=== PATIENT | male | born 1955 | race Caucasian/White ===

== ENCOUNTER 2016-06-15 08:08 | Observation (INO) | payer BC ==
[~2016-06-15 08:08] MED LIST: ASAB PO; GLUCOPHAGE1000 MG PO; GLUCOTRO10 PO; INVOKANA100 MG PO; LOP25 PO; NITROSTAT0.4 MG SL; ZOCOR10 PO
[2016-06-15 09:10] LABS: BASOPHILS 0.4 %; BASOPHILS ABSOLUTE 0.03 10/3/uL (0.0-0.16); EOSINOPHILS 3.6 %; EOSINOPHILS ABSOLUTE 0.26 10/3/uL (0.0-0.53); HEMOGLOBIN 14.7 g/dL (13.6-17.8); IMMATURE GRANULOCYTES 0.3 %; IMMATURE GRANULOCYTES ABSOLUTE 0.02 10/3/uL (0.0-0.11); LYMPHOCYTES 22.7 %; LYMPHOCYTES ABSOLUTE 1.62 10/3/uL (0.67-4.30); MEAN CORPUSCULAR HEMOGLOB 31.5 pg (26.0-34.0); MEAN PLATELET VOLUME 9.9 fL (9.2-13.0); MONOCYTES 11.6 %; MONOCYTES ABSOLUTE 0.83 10/3/uL (0.21-1.20); NEUTROPHILS 61.4 %; NEUTROPHILS ABSOLUTE 4.37 10/3/uL (2.02-8.40); PLATELET COUNT 226 10/3/uL (150-400); RBC DISTRIBUTION WIDTH 12.5 % (12.0-16.0); RED CELL COUNT 4.66 10/6/uL (4.7-6.1); WHITE BLOOD CELLS 7.1 10/3/uL (4.5-10.5)
[2016-06-15 09:11] LABS: HEMATOCRIT 39.5 % (40.0-51.0); MANUAL DIFF NO %; MEAN CORPUS HGB CONC 37.2 g/dL (32.0-36.0); MEAN CORPUSCULAR VOLUME 84.8 fL (80-100)
[2016-06-15 09:26] LABS: BUN (BLOOD UREA NITROGEN) 16 MG/DL (6-23); CALCIUM, SERUM 8.3 MG/DL (8.5-10.4); CHLORIDE, SERUM 107 MMOL/L (96-112); CO2 (CARBON DIOXIDE) 27 MMOL/L (24-34); CREATININE 0.81 MG/DL (0.70-1.30); GFR AFRICAN AMERICAN 110 ML/MIN (>=60); GFR NON AFRICAN AMERICAN 95 ML/MIN (>=60); HDL CHOLESTEROL 48 MG/DL (> 39); POTASSIUM, SERUM 3.9 MMOL/L (3.5-5.3); SODIUM, SERUM 141 MMOL/L (135-148)
[2016-06-15 09:27] LABS: CHOL/HDL RATIO(NOT ORDER) 3.8 (0-5); CHOLESTEROL 182 MG/DL (< 200); GLUCOSE, SERUM 182 MG/DL (60-99); LDL CHOLESTEROL 113 MG/DL (< 130); NON-HDL CHOLESTEROL 134 MG/DL (< 160); TRIGLYCERIDE 106 MG/DL (< 150)
[2016-06-15 09:28] LABS: PLATELET ESTIMATE ADQ (ADEQUATE); RBC MORPHOLOGY NORM (NORMAL)
[2016-06-16] MEDS ORDERED: EFFIENT10 PO (08:58)
[2016-06-16] MEDS ORDERED: LIPITOR40 PO (08:58)
== END 2016-06-16 09:25 | disposition home or self-care (01) ==
LOC: CORLMH 08:08 → SSU1 08:17
PROVIDERS: Internal Medicine Cardiovascular Disease
PROC: 4A023N7 Measurement of Cardiac Sampling and Pressure, Left Heart, Percutaneous Approach (ICD-10-PCS; principal; 2016-06-15)
PROC: B2111ZZ Fluoroscopy of Multiple Coronary Arteries using Low Osmolar Contrast (ICD-10-PCS; 2016-06-15)
PROC: 027034Z Dilation of Coronary Artery, One Artery with Drug-eluting Intraluminal Device, Percutaneous Approach (ICD-10-PCS; 2016-06-15)
DX: I25.10 Atherosclerotic heart disease of native coronary artery without angina pectoris (principal); I21.4 Non-ST elevation (NSTEMI) myocardial infarction; E11.9 Type 2 diabetes mellitus without complications; E78.5 Hyperlipidemia, unspecified; Z83.49 Family history of other endocrine, nutritional and metabolic diseases; Z83.3 Family history of diabetes mellitus; Z87.81 Personal history of (healed) traumatic fracture; Z79.82 Long term (current) use of aspirin; Z79.84 Long term (current) use of oral hypoglycemic drugs; Z79.899 Other long term (current) drug therapy
CPT/HCPCS: 80048; 80061; 82962; 85025; 85347; 93005; 93458; 93571; 99152; 99153; A9270-GY; C1725; C1769; C1874; C1887; C1894; C9600; G0378; J0153; J2250; J3010; Q9967

== ENCOUNTER 2016-08-16 23:02 | Emergency (ER) | payer BC ==
[~2016-08-16 23:02] MED LIST changes: +EFFIENT10 PO; +LIPITOR40 PO
[2016-08-17 00:03] LABS: BASOPHILS 0.1 %; BASOPHILS ABSOLUTE 0.01 10/3/uL (0.0-0.16); EOSINOPHILS 1.5 %; EOSINOPHILS ABSOLUTE 0.13 10/3/uL (0.0-0.53); HEMATOCRIT 40.3 % (40.0-51.0); HEMOGLOBIN 14.4 g/dL (13.6-17.8); IMMATURE GRANULOCYTES 0.1 %; IMMATURE GRANULOCYTES ABSOLUTE 0.01 10/3/uL (0.0-0.11); LYMPHOCYTES 17.4 %; LYMPHOCYTES ABSOLUTE 1.52 10/3/uL (0.67-4.30); MANUAL DIFF NO %; MEAN CORPUS HGB CONC 35.7 g/dL (32.0-36.0); MEAN CORPUSCULAR HEMOGLOB 31.5 pg (26.0-34.0); MEAN CORPUSCULAR VOLUME 88.2 fL (80-100); MEAN PLATELET VOLUME 10.3 fL (9.2-13.0); MONOCYTES 7.1 %; MONOCYTES ABSOLUTE 0.62 10/3/uL (0.21-1.20); NEUTROPHILS 73.8 %; NEUTROPHILS ABSOLUTE 6.46 10/3/uL (2.02-8.40); PLATELET COUNT 233 10/3/uL (150-400); RBC DISTRIBUTION WIDTH 12.6 % (12.0-16.0); RED CELL COUNT 4.57 10/6/uL (4.7-6.1); WHITE BLOOD CELLS 8.8 10/3/uL (4.5-10.5)
[2016-08-17 00:10] LABS: INTERNATIONAL NORMAL RATI 1.1 UNITS (-); PARTIAL THROMBO TIME 29.8 SEC (22.5-37.2); PROTIME (NOT ORD) 14.1 SEC (12.0-14.5)
[2016-08-17 00:19] LABS: CALCIUM, SERUM 8.9 MG/DL (8.5-10.4); CHEST PAIN PROFILE TAT 0 Hrs 20 Mins; CHLORIDE, SERUM 110 MMOL/L (96-112); CO2 (CARBON DIOXIDE) 25 MMOL/L (24-34); CREATININE 0.96 MG/DL (0.70-1.30); GFR AFRICAN AMERICAN 97 ML/MIN (>=60); GFR NON AFRICAN AMERICAN 84 ML/MIN (>=60); GLUCOSE, SERUM 200 MG/DL (60-99); POTASSIUM, SERUM 3.7 MMOL/L (3.5-5.3); SODIUM, SERUM 144 MMOL/L (135-148); TROPONIN I <0.02 NG/ML (<0.05)
[2016-08-17 00:20] LABS: BUN (BLOOD UREA NITROGEN) 24 MG/DL (6-23)
== END 2016-08-17 01:24 | disposition home or self-care (01) ==
LOC: ER 23:02
PROVIDERS: Nurse Practitioner
DX: S08.0XXA Avulsion of scalp, initial encounter (principal); S00.81XA Abrasion of other part of head, initial encounter; M54.2 Cervicalgia; R07.9 Chest pain, unspecified; Z95.5 Presence of coronary angioplasty implant and graft; Z79.899 Other long term (current) drug therapy; Z79.82 Long term (current) use of aspirin; Z79.84 Long term (current) use of oral hypoglycemic drugs; W19.XXXA Unspecified fall, initial encounter
CPT/HCPCS: 70450; 71010; 72125; 80048; 83735; 84484; 85025; 85610; 85730; 90471; 90714; 93005; 99285